=== PATIENT | female | born 1945 | race Caucasian/White ===

== ENCOUNTER 2017-06-24 | Day surgery (SDC) | END 2017-06-24 10:18 | disposition home or self-care (01) ==

== ENCOUNTER 2017-07-18 10:10 | Day surgery (SDC) | payer OTHER ==
[~2017-07-18] VITALS: Ht 157.5 cm; Wt 58.5 kg
[~2017-07-18 10:10] MED LIST: ACET325 PO; B Complex #11 EACH PO; BENTYL10 MG PO; CALCAVITD PO; DHEA PO; Fibercon625 MG PO; MELA3 PO; Omeprazole20 M1; SOLI5; Voltaren100 GM TP
[2018-02-20] MEDS ORDERED: ALEN70 PO (10:54)
== END 2017-07-18 15:17 | disposition home or self-care (01) ==
LOC: ORSCSDS 10:10
PROVIDERS: Orthopaedic Surgery
PROC: 0RGX04Z Fusion of Left Finger Phalangeal Joint with Internal Fixation Device, Open Approach (ICD-10-PCS; principal; 2017-07-18 11:45)
DX: M19.042 Primary osteoarthritis, left hand (principal)
CPT/HCPCS: C1713; C1769; J0690; J1100; J2250; J2405; J3010; J7120

== ENCOUNTER → 2022-12-26 | Outpatient (CLI) | payer OTHER ==
[~2022-12-26] MED LIST changes: +ALEN70 PO
== END ==
LOC: LAB 10:37 → LAB SHORT 10:37
DX: N39.0 Urinary tract infection, site not specified (principal)
CPT/HCPCS: 87077; 87086; 87186

== ENCOUNTER → 2024-06-21 | Outpatient (CLI) | payer OTHER | LOC: LAB 15:39 → LAB SHORT 15:39 | DX: N39.0 Urinary tract infection, site not specified (principal); R31.9 Hematuria, unspecified | CPT/HCPCS: 87077; 87086; 87186 ==

== ENCOUNTER → 2024-10-02 | Outpatient (CLI) | payer OTHER | LOC: LAB SHORT 14:32 → LAB 14:32 | DX: N39.0 Urinary tract infection, site not specified (principal) | CPT/HCPCS: 87077; 87086; 87186 ==

== ENCOUNTER → 2024-11-01 | Outpatient (CLI) | payer OTHER | LOC: LAB 14:26 → LAB SHORT 14:26 | DX: N39.0 Urinary tract infection, site not specified (principal) | CPT/HCPCS: 87077; 87086; 87186 ==